=== PATIENT | female | born 1965 | race African-American/Black ===

== ENCOUNTER 2018-04-06 15:42 | Emergency (ER) | payer MEDICAID ==
[~2018-04-06] VITALS: Ht 162.6 cm; Wt 81.4 kg
[2018-04-06] MEDS ORDERED: IBUPROFEN 600MG TABLET PO ONE (17:15)
[2018-04-06 21:43] VITALS: BP 161/84
== END 2018-04-06 21:44 | disposition home or self-care (01) ==
LOC: ER 17:41
DX: S63.8X2A Sprain of other part of left wrist and hand, initial encounter (principal); I10 Essential (primary) hypertension; E11.9 Type 2 diabetes mellitus without complications; H40.9 Unspecified glaucoma; Z88.8 Allergy status to other drugs, medicaments and biological substances; W10.8XXA Fall (on) (from) other stairs and steps, initial encounter; Y93.89 Activity, other specified; Y92.018 Other place in single-family (private) house as the place of occurrence of the external cause
CPT/HCPCS: 73110; 73130; 99284